=== PATIENT | female | born 1965 | race Two or more races ===

== ENCOUNTER 2020-12-18 06:46 | Outpatient (CLI) | payer OTHER | END 2020-12-18 23:59 | disposition home or self-care (01) | LOC: LAB 06:46 | PROVIDERS: ATTEND Orthopaedic Surgery | DX: Z01.812 Encounter for preprocedural laboratory examination (principal); Z20.822 Contact with and (suspected) exposure to COVID-19; M65.88 Other synovitis and tenosynovitis, other site ==

== ENCOUNTER 2021-01-01 06:29 | Outpatient (CLI) | payer OTHER | END 2021-01-01 23:59 | disposition home or self-care (01) | LOC: LAB 06:29 | PROVIDERS: ATTEND Orthopaedic Surgery | DX: Z01.812 Encounter for preprocedural laboratory examination (principal); Z20.822 Contact with and (suspected) exposure to COVID-19 ==

== ENCOUNTER 2021-01-02 10:02 | Outpatient (CLI) | payer OTHER ==
[2021-01-02 10:50] LABS: *BILIRUBIN,URIN NEGATIVE (NEGATIVE); *CLARITY,URINE CLEAR (CLEAR); *COLOR,URINE YELLOW (YELLOW); *KETONES,URINE NEGATIVE (NEGATIVE); *UROBILINOGEN,URINE 0.2 E.U./dl (NORMAL); LEUKOCYTE ESTERASE ,URINE TRACE (NEGATIVE); NITRITE, URINE NEGATIVE (NEGATIVE); PH,URINE 5.5 (5.0-8.0); UGLUCOSE NEGATIVE (NEGATIVE)
[2021-01-02 10:52] LABS: BASOPHILS # (AUTO) 0.1 K/uL (0.0-8.0); BASOPHILS % (AUTO) 0.8 % (0.0-2.0); EOSINOPHILS # (AUTO) 0.1 K/uL (0.0-0.7); EOSINOPHILS % (AUTO) 1.6 % (0.0-7.0); HEMATOCRIT 36.4 % (31.2-41.9); HEMOGLOBIN 12.2 g/dL (10.9-14.3); LYMPHOCYTES # (AUTO) 2.6 K/uL (20.0-40.0); MEAN CORPUSCULAR HEMOGLOBIN 28.7 uug (24.7-32.8); MEAN CORPUSCULAR HGB CONC 33 g/dL (32.3-35.6); MEAN CORPUSCULAR VOLUME 86.1 fL (75.5-95.3); MONOCYTES # (AUTO) 0.4 K/uL (2.0-10.0); NEUTROPHILS % (AUTO) 55.6 % (38.5-71.5); PLATELET COUNT (AUTO) 311 K/uL (179-408); RED BLOOD CELL COUNT(AUTO) 4.23 MIL/uL (3.63-4.92); WHITE BLOOD COUNT (AUTO) 7.3 K/uL (3.8-11.8)
[2021-01-02 11:04] LABS: CREATININE 0.9 mg/dL (0.6-1.3); POTASSIUM 3.9 mmol/L (3.5-5.1)
[2021-01-02 11:16] LABS: *BLOOD, URINE TRACE (NEGATIVE)
[2021-01-02 11:18] LABS: BILIRUBIN,TOTAL 0.3 mg/dL (0.2-1.0); TOTAL PROTEIN, SERUM 7.5 g/dL (6.4-8.2)
[2021-01-02 15:19] LABS: BACTERIA,URINE FEW /HPF (NONE SEEN); SQUAMOUS EPITHELIAL CELL,UR FEW /HPF (NONE SEEN)
== END 2021-01-02 23:59 | disposition home or self-care (01) ==
LOC: LAB 10:02
PROVIDERS: ATTEND Internal Medicine
DX: Z01.818 Encounter for other preprocedural examination (principal); M65.841 Other synovitis and tenosynovitis, right hand
CPT/HCPCS: 36415; 71045; 85025; 85730; 93005; A4663

== ENCOUNTER 2021-01-04 07:12 | Day surgery (SDC) | payer OTHER ==
[2021-01-04] MEDS ORDERED: LIDOCAINE-MPF 2% 5 ML VIAL MC ONE (07:13)
[2021-01-04] MEDS ORDERED: CEFAZOLIN 1 G VIAL MC ONE (07:13)
[2021-01-04] MEDS ORDERED: PROPOFOL 200 MG/20 ML BOTTLE IV ONE (07:13)
[2021-01-04] MEDS ORDERED: SEVOFLURANE 250 ML BOTTLE IH ONE (07:13)
[2021-01-04] MEDS ORDERED: POLYMYXIN B SULFATE 500,000 UNITS, BACITRACIN 50,000 UNITS, NORMAL SALINE 20 ML MC ONE (08:45)
[2021-01-04] MEDS ORDERED: FENTANYL CITRATE 100 MCG/2 ML AMPUL ONE (09:17)
[2021-01-04] MEDS ORDERED: BUPIVACAINE PF 0.5% 30 ML VIAL ONE (09:41)
[2021-01-04] MEDS ORDERED: TRAMADOL HCL 50 MG TABLET ONE (11:42)
== END 2021-01-04 12:35 | disposition home or self-care (01) ==
LOC: DS 07:12
PROVIDERS: ATTEND Orthopaedic Surgery
DX: M65.841 Other synovitis and tenosynovitis, right hand (principal); I25.10 Atherosclerotic heart disease of native coronary artery without angina pectoris; I10 Essential (primary) hypertension; E11.9 Type 2 diabetes mellitus without complications; Z79.899 Other long term (current) drug therapy; Z98.890 Other specified postprocedural states
CPT/HCPCS: 26145; 82962; J0690; J3010; J3490 ×4; A4649; J7030